=== PATIENT | female | born 1945 | race Caucasian/White ===

== ENCOUNTER → 2017-11-29 | Outpatient (CLI) | payer OTHER | LOC: BRMIMAGING 14:50 | PROVIDERS: ATTEND Registered Nurse | DX: Z12.31 Encounter for screening mammogram for malignant neoplasm of breast (principal); N63.21 Unspecified lump in the left breast, upper outer quadrant ==

== ENCOUNTER → 2017-12-21 | Outpatient (CLI) | payer OTHER | LOC: BRMIMAGING 09:37 | PROVIDERS: ATTEND Registered Nurse | DX: N63.20 Unspecified lump in the left breast, unspecified quadrant (principal) | CPT/HCPCS: 76641-PO ==

== ENCOUNTER → 2018-02-24 | Outpatient (CLI) | payer OTHER ==
[~2018-02-24] MED LIST: GADOBUTROL 10 ML VIAL IVP ONE
== END ==
LOC: FIMAGING 10:05
PROVIDERS: ATTEND Registered Nurse
DX: N63.22 Unspecified lump in the left breast, upper inner quadrant (principal)
CPT/HCPCS: 0159T; A9585; C8908; 82565-PO

== ENCOUNTER 2018-03-24 06:22 | Day surgery (SDC) | payer OTHER ==
[2018-03-24] MEDS ORDERED: ceFAZolin 2 GM/DEXTROSE 100 ML IV ONE (06:52)
[2018-03-24] MEDS ORDERED: LR 1,000 ML IV ONE (06:55)
[2018-03-24] MEDS ORDERED: LIDOCAINE 1% 2 ML INJ ID PRN (06:55)
--- NOTE | 2018-03-24 07:10 | PDHPUP ---
History & Physical Update H&P update statement: This history and physical update is based on an assessment of the patient which was completed after admission or registration (within 24 hours), but prior to the surgery/procedure. H&P update: H&P reviewed & patient examined, no change in patient's condition since H&P completed
[2018-03-24] MEDS ORDERED: LIDOCAINE 1% 300 MG/30 ML SDV ONE ×2 (07:44→08:06)
[2018-03-24] MEDS ORDERED: MIDAZOLAM 2 MG/2 ML VIAL ONE (09:47)
[2018-03-24] MEDS ORDERED: MIDAZOLAM 2 MG/2 ML VIAL IVP ONE (09:52)
[2018-03-24] MEDS ORDERED: NALOXONE HCL 0.4 MG/ML INJ IVP PRN (09:55)
--- NOTE | 2018-03-24 09:55 | PDANEPAE ---
ANE Past Medical History - Cardiovascular History Hx Hypertension: No Hx Arrhythmias: Yes Hx Chest Pain: No Hx Coronary Artery / Peripheral Vascular Disease: No Hx CHF / Valvular Disease: No Hx Palpitations: No Cardiovascular History Comment: mobic caused irregular heartbeat. pvc's. dyslidemia. sinus bradycardia. was worked up by Romina Fitzgerald at [facility] in 10/2017 - will obtain records - Pulmonary History Hx COPD: No Hx Asthma/Reactive Airway Disease: No Hx Recent Upper Respiratory Infection: No Hx Oxygen in Use at Home: No Hx Sleep Apnea: No Sleep Apnea Screening Result - Last Documented: Negative - Neurologic History Hx Cerebrovascular Accident: No Hx Seizures: No Hx Dementia: No - Endocrine History Hx Diabetes: No - Renal History Hx Renal Disorders: Yes Renal History Comment: hx of kidney stones with lithotripsy - Liver History Hx Hepatic Disorders: No - Neurological & Psychiatric Hx Hx Neurological and Psychiatric Disorders: Yes Neurological / Psychiatric History Comment: chronic depression - Cancer History Hx Cancer: Yes Cancer History Comment: basal cell removed from nose - Congenital Disorder History Hx Congenital Disorders: Yes Congenital History Comment: 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 bilateral bunionectomies for cogenital defects. lipoma removed from leg. lithotripsy ANE Review of Systems Review of Systems: - Exercise capacity METS (RN): 4 METS ANE Patient History - Allergies Allergies/Adverse Reactions: meloxicam [From Mobic] Allergy (Verified 03/22/18 11:50) caused irregular heart beat - Home Medications Home medications: home medication list seen and reviewed Home Medications: Aspirin 03/22/18 [Last Taken 03/22/18] Herbals/Supplements -Info Only 03/22/18 [Last Taken 03/22/18] Metoprolol Tartrate 03/22/18 [Last Taken 03/24/18 05:00] - NPO status NPO Status: no food or drink >8 hours NPO Since - Liquids (Date): 03/23/18 NPO Since - Liquids (Time): 21:00 NPO Since - Solids (Date): 03/23/18 NPO Since - Solids (Time): 21:00 - Anes Hx Anes Hx: post operative nausea and vomiting - Smoking Hx Smoking Status: Never smoked - Family Anes Hx Family Hx Anesthesia Complications: none ANE Labs/Vital Signs - Vital Signs Blood Pressure: 158/75 Heart Rate: 48 Respiratory Rate: 18 O2 Sat (%): 93 Height: 170.18 cm Weight: 70.307 kg ANE Physical Exam - Airway Mallampati Score: Class 2 Mouth exam: normal dental/mouth exam - Pulmonary Pulmonary: no respiratory distress, no rales or rhonchi, clear to auscultation - Cardiovascular Cardiovascular: no murmur, rub, or gallop, bradycardia - ASA Status ASA Status: II ANE Anesthesia Plan Anesthesia Plan: MAC
[2018-03-24] MEDS ORDERED: PROPOFOL 200 MG/20 ML VIAL ONE (09:58)
[2018-03-24] MEDS ORDERED: LIDOCAINE 2% 5 ML SDV ONE (09:59)
[2018-03-24] MEDS ORDERED: LR 500 ML IV PRN (10:00)
[2018-03-24] MEDS ORDERED: ACETAMINOPHEN 500 MG TAB PO PRN (10:00)
[2018-03-24] MEDS ORDERED: ONDANSETRON 4 MG/2 ML VIAL IVP PRN (10:00)
[2018-03-24] MEDS ORDERED: HYDROmorphONE/DILAUDID 1 MG/ML INJ IVP PRN (10:00)
[2018-03-24] MEDS ORDERED: DEXAMETHASONE 4 MG/ML VIAL IVP PRN (10:00)
[2018-03-24] MEDS ORDERED: PROMETHAZINE HCL 25 MG/ML INJ IVP PRN (10:00)
[2018-03-24] MEDS ORDERED: fentaNYL 100 MCG/2 ML INJ IVP PRN (10:00)
--- NOTE | 2018-03-24 10:33 | POSTOPPROG ---
Post Op Note Date of Operation: 03/24/18 Surgeon: Cassy Ponce Anesthesiologist: anival Anesthesia: IV Sedation Pre-op Diagnosis: L breast mass Post-op Diagnosis: same Indication: 72 yo with left breast mass Procedure: L needle localized breast cancer Findings: area of concern in specimen Inf/Abcess present in the surg proc area at time of surgery?: No EBL: Minimal Specimen(s): L breast mass
--- NOTE | 2018-03-24 10:43 | POSTANESTH ---
Post Anesthetic Evaluation Cardiovascular Status: Similar to Pre-Op Cond Respiratory Status: Normal, Stable, Similar to Pre-op Cond. Level of Consciousness/Mental Status: Can Participate in Eval, Mildly Sleepy, Arousable Pain Control: Adequate, Prn Tx Ordered Nausea/Vomiting Control: Adequate, Prn Tx Ordered Complications Possibly Related to Anesthesia: None Noted
--- NOTE | 2018-03-24 10:53 | GOP ---
[f rep st] OPERATIVE REPORT DATE OF OPERATION: 03/24/2018 SURGEON: Cassy Ponce MD ANESTHESIA: Monitored anesthesia care with IV sedation. ANESTHESIOLOGIST: Xavier Gutiérrez MD. PREOPERATIVE DIAGNOSIS: Left breast mass. POSTOPERATIVE DIAGNOSIS: Left breast mass. PROCEDURE PERFORMED: Left needle localized excisional biopsy of left breast mass. FINDINGS: Area of concern contained within the specimen. SPECIMENS: Left breast mass. ESTIMATED BLOOD LOSS: 5 mL. INDICATIONS: The patient is a 72-year-old woman who had a lesion detected on mammogram. It was tech nically difficult to biopsy either stereotactic or MRI. Decision was made to perform excisional taina st biopsy. DESCRIPTION OF PROCEDURE: The patient was brought into the operating room, placed supine on the tabl e. Monitored anesthesia care with IV sedation was performed. Her left breast was prepped and draped in the usual sterile fashion. I infiltrated all sites with 0.25% Marcaine mixed with 1% lidocaine p rior to making incisions. I made an ellipse around the wire. I created superior and inferior skin f laps. I dissected down beyond the level of the wire. This was submitted to Pathology. Area contain ed within the specimen. Hemostasis was achieved. Deep layer closed with 3-0 Vicryl. Skin closed wi th 3-0 Vicryl, followed by 4-0 Monocryl. Mastisol, Steri-Strips, sterile dressing applied. She was awakened in the operating room, transferred to PACU in stable condition. /[id number]/MODL
[2018-03-24 11:45] VITALS: BP 150/71
== END 2018-03-24 12:30 | disposition home or self-care (01) ==
LOC: FIMAGING 06:22
PROVIDERS: ATTEND Surgery
PROC: 0HBU3ZX Excision of Left Breast, Percutaneous Approach, Diagnostic (ICD-10-PCS; principal; 2018-03-24 09:45)
DX: C50.411 Malignant neoplasm of upper-outer quadrant of right female breast (principal); F32.9 Major depressive disorder, single episode, unspecified; Z85.22 Personal history of malignant neoplasm of nasal cavities, middle ear, and accessory sinuses
CPT/HCPCS: J0690; J2250; J2704

== ENCOUNTER → 2018-07-31 | Outpatient (CLI) | payer OTHER | LOC: BRMIMAGING 10:26 | PROVIDERS: ATTEND Internal Medicine Hematology & Oncology | DX: Z13.820 Encounter for screening for osteoporosis (principal); M85.89 Other specified disorders of bone density and structure, multiple sites; N95.8 Other specified menopausal and perimenopausal disorders ==